=== PATIENT | male | born 1950 | race Caucasian/White ===

== ENCOUNTER 2021-03-23 07:35 | Emergency (ER) | payer OTHER ==
[~2021-03-23] VITALS: Ht 172.7 cm; Wt 104.3 kg
[~2021-03-23 07:35] MED LIST: ENALAPRIL MALEAT5 MG; FORTAMET500 MG; SIMVASTATIN20 MG
[2021-03-23] MEDS ORDERED: OMEGA-31000 MG (07:46)
== END 2021-03-23 13:02 | disposition home or self-care (01) ==
LOC: ER 07:35
DX: K57.30 Diverticulosis of large intestine without perforation or abscess without bleeding (principal); K76.0 Fatty (change of) liver, not elsewhere classified; R10.31 Right lower quadrant pain